=== PATIENT | female | born 1940 | race Caucasian/White ===

== ENCOUNTER 2020-04-04 21:13 | Emergency (ER) | payer MEDICARE, OTHER ==
[~2020-04-04] VITALS: Ht 160 cm; Wt 56.7 kg
[~2020-04-04 21:13] MED LIST: AMLODIPINE BESYL5 MG PO; DOXAZOSIN MESYLA1 MG PO; KEFLEX500 MG PO; LOSARTAN POTAS100 MG PO; SPIRONOLACTONE25 MG PO; TENORMIN50 MG PO; ZOFRAN ODT4 MG SL
--- NOTE | 2020-04-05 11:56 | EKG ---
[facility] [address] [place], [place] [address] Signed Normal sinus rhythm Normal ECG No previous ECGs available Confirmed by WALTER CHAPPELL DO ([id number]) on 04/05/2020 11:56:26 AM Electronically Signed By: WALTER CHAPPELL DO 04/05/20 1156 PATIENT NAME: NASIM HYMAN IRENE Electrocardiogram DATE OF : 40 PHYSICIAN: WALTER CHAPPELL DO REPORT #: [id number] REPORT IS CONFIDENTIAL AND NOT TO BE RELEASED WITHOUT AUTHORIZATION
== END 2020-04-05 01:45 | disposition home or self-care (01) ==
LOC: ED 21:13
DX: I10 Essential (primary) hypertension (principal); R07.9 Chest pain, unspecified; Z88.2 Allergy status to sulfonamides; Z79.899 Other long term (current) drug therapy
CPT/HCPCS: 71045; 80053; 83735; 84484; 85025; 93005; 93010; 96374; 99285-25; J2405

== ENCOUNTER 2021-09-01 07:04 | Day surgery (SDC) | payer MEDICARE, OTHER ==
[~2021-09-01] VITALS: Ht 157.5 cm; Wt 62.0 kg
[~2021-09-01 07:04] MED LIST changes: +ADULT ASPIRIN R81 MG PO; +CEPHALEXIN500 M1 PO; +COZAAR100 MG PO; +IBU-200200 MG PO; +OMEPRAZOLE20 M2 PO; +PRILOSEC OTC20 MG PO; +VITAMIN C500 M5 PO; +ZANTAC-360 (FAM20 MG PO; +[UNRECOGNIZED DRUG - REMARK]
--- NOTE | 2021-09-01 08:57 | NUR ---
09/01/21 0857 Sharla Aldridge 0852- PT ARRIVES TO PACU AWAKE AND ANSWERING QUESTIONS. PT REPORTS NO PAIN OR NAUSEA. RESP EVEN AND UNLABORED. OXYGEN SAT HIGH 90'S TO 100% ON 3L VIA CO2 NC. 0857- OXYGEN TITRATED OFF.
--- NOTE | 2021-09-01 09:48 | OR ---
[facility] [address] [place], [place] [address] Signed DATE OF OPERATION: 09/01/2021 SURGEON: Yan Isaacs MD PREOPERATIVE DIAGNOSIS: Screening. POSTOPERATIVE DIAGNOSES: 1. Moderate sigmoid diverticulosis. 2. Moderately narrowed and tortuous sigmoid colon. 3. Moderate internal hemorrhoids. PROCEDURE: Colonoscopy without biopsy. ESTIMATED BLOOD LOSS: None. INDICATIONS: Nasim is an 81-year-old female, asked to see me for a followup colonoscopy. She had an unremarkable colonoscopy in 2008 and was told to follow up in 10 years. She has no lower GI complaints currently. She maintains good functional status. No family history of colon cancer or polyps. No lower GI complaints. In the office, I gave Nasim a booklet on colonoscopy. She understands the nature of the test. There is risk including, but not limited to gas bloating, crampy abdominal pain, bleeding, perforation requiring surgery and missed diagnosis. She is also aware of the need for IV conscious sedation. She had expressed understanding and wished to proceed. PROCEDURE NOTE: Nasim was taken into our endoscopy suite and placed in the left lateral decubitus position. She was given IV sedation with 100 mcg of fentanyl and 4 mg of Versed to cover the case. A digital rectal exam was performed and this was unremarkable. She had good sphincter tone. The adult colonoscope was introduced and advanced under direct visualization of the camera. Her sigmoid colon was somewhat narrowed and tortuous. It took a few minutes with extra sedation and abdominal compression in order to advance the scope through the sigmoid colon. Once into the left colon, the lumen opened up nicely and the scope traveled around readily to the cecum itself. Her prep was quite excellent. We could easily see the appendiceal orifice and the ileocecal valve. The scope was then slowly withdrawn. There were no polyps throughout the entire colon or rectum. She does have diverticula in the sigmoid colon. They were moderate in size, Electronically Signed By: YAN ISAACS MD 09/01/21 0948 PATIENT NAME: NASIM HYMAN OPERATIVE REPORT DATE OF : 40 REPORT #: [id number] PHYSICIAN: YAN ISAACS MD PCP: AFTAB MICHEL MD REPORT IS CONFIDENTIAL AND NOT TO BE RELEASED WITHOUT AUTHORIZATION [facility] [address] [place] [id number] Signed moderate in number, and scattered about. The rectum itself was unremarkable. Upon retroflexion of the scope, she does have moderate internal hemorrhoid columns. After this, the gas was suctioned out and the colonoscope removed. Nasim tolerated the procedure quite well. RECOMMENDATIONS: Nasim can follow up as needed for colonoscopies in the future. Yan Isaacs MD ALB/MODL /[id number] cc: MD Yan Fowler MD Copies: AFTAB MICHEL MD, ANDREW L MD ~ Electronically Signed By: YAN ISAACS MD 09/01/21 0948 PATIENT NAME: BOOGIE,KIMSwathi BONILLA OPERATIVE REPORT DATE OF : 40 REPORT #: [id number] PHYSICIAN: YAN ISAACS MD PCP: AFTAB MICHEL MD REPORT IS CONFIDENTIAL AND NOT TO BE RELEASED WITHOUT AUTHORIZATION
== END 2021-09-01 09:51 | disposition home or self-care (01) ==
LOC: DS 07:04 → OPS 07:04 → DS 08:15 → OPS 08:15
PROVIDERS: ATTEND Colon & Rectal Surgery
PROC: 0DJD8ZZ Inspection of Lower Intestinal Tract, Via Natural or Artificial Opening Endoscopic (ICD-10-PCS; principal; 2021-09-01 08:15)
DX: Z12.11 Encounter for screening for malignant neoplasm of colon (principal); K57.30 Diverticulosis of large intestine without perforation or abscess without bleeding; K63.89 Other specified diseases of intestine; K64.8 Other hemorrhoids; I10 Essential (primary) hypertension; Z88.2 Allergy status to sulfonamides; Z88.8 Allergy status to other drugs, medicaments and biological substances
CPT/HCPCS: 99153; G0500; J2250; J2405; J3010

== ENCOUNTER 2024-08-19 11:51 | Emergency (ER) | payer MEDICARE, OTHER ==
[~2024-08-19] VITALS: Ht 157.5 cm; Wt 57.6 kg
[2024-08-19] MEDS ORDERED: ATENOLOL50 MG PO (12:05)
[2024-08-19] MEDS ORDERED: RIZATRIPTAN5 MG PO (12:06)
[2024-08-19 12:40] LABS: BASOPHILS 0.4 % (0-2); EOSINOPHILS 1.6 % (0-6); HEMATOCRIT 36.1 % (35.0-50.0); HEMOGLOBIN 12.7 g/dL (12.0-18.0); MCH 33.5 (27-36); MCHC 35.1 g/dl (30-36); MCV 95.4 fl (81-99); MONOCYTES 5.5 % (0-12); NEUTROPHILS 73.5 % (39-80); PLATELET COUNT 295 K/uL (140-440); RBC 3.78 M/ul (4.3-5.7); RDW 13.1 (10.5-15.0)
[2024-08-19] MEDS ORDERED: ondansetron HCL 4 MG/2 ML VIAL IV ONE (12:45)
[2024-08-19 12:56] LABS: ALBUMIN 4.1 g/dL (3.4-5.0); ALBUMIN/GLOBULIN RATIO 1.21 (1.1-2.4); BILIRUBIN, TOTAL 0.6 ng/dL (0.2-1.0); BUN/CREATININE RATIO 14.52 (6.0-28.6); CALCIUM 9.3 mg/dL (8.5-10.1); CREATININE, SERUM 1.17 mg/dL (0.55-1.02); MAGNESIUM 1.3 mg/dL (1.8-2.4); PROTEIN, TOTAL 7.5 g/dL (6.4-8.2)
[2024-08-19] MEDS ORDERED: propofoL 200 MG/20 ML VIAL IV ONE ×2 (13:00→13:30)
[2024-08-19] MEDS ORDERED: MAGNESIUM SULFATE 2 GM/50 ML BAG IV ONE (13:45)
[2024-08-19 15:23] VITALS: BP 142/63
--- NOTE | 2024-08-20 21:14 | EKG ---
[facility] [address] [facility] [place] [address] Signed Normal sinus rhythm Minimal voltage criteria for LVH, may be normal variant ( [place] product ) Borderline ECG When compared with ECG of 04-APR-2020 21:20, No significant change was found Confirmed by Robel Vance DO ([id number]) on 08/20/2024 9:14:45 PM Electronically Signed By: ROBEL VANCE DO 08/20/[id number] PATIENT NAME: BOOGIEKIMSwathi BONILLA Electrocardiogram DATE OF : 40 PHYSICIAN: ROBEL VANCE DO REPORT #: [id number] REPORT IS CONFIDENTIAL AND NOT TO BE RELEASED WITHOUT AUTHORIZATION
== END 2024-08-19 15:23 | disposition home or self-care (01) ==
LOC: ED 11:51
PROVIDERS: Emergency Medicine
DX: R55 Syncope and collapse (principal); E83.42 Hypomagnesemia; S43.084A Other dislocation of right shoulder joint, initial encounter; I10 Essential (primary) hypertension; Z88.1 Allergy status to other antibiotic agents; Z88.2 Allergy status to sulfonamides; W19.XXXA Unspecified fall, initial encounter
CPT/HCPCS: 23650; 36415; 73030; 80053; 83735; 84484; 85025; 93005; 93010; 94799; 99284-25; J2405; J2704; J3475

== ENCOUNTER 2024-08-20 21:11 | Emergency (ER) | payer MEDICARE, OTHER ==
[~2024-08-20] VITALS: Ht 157.5 cm; Wt 57.6 kg
[~2024-08-20 21:11] MED LIST changes: +ATENOLOL50 MG PO; +RIZATRIPTAN5 MG PO
--- OUTSIDE RECORDS SUMMARY | 2024-08-20 21:17 | XMS ---
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 [facility] has no Care Guidelines for this patient. Millie VISIT COUNT (12 MO.) 2 [facility] [place] H. TOTAL 2 NOTE: Visits indicate total known visits. ED/C VISIT TRACKING (12 MO.) 08/20/2024 21:11 [facility] TYPE: Emergency COMPLAINT: - ARM PAIN 08/19/2024 11:[address] [facility] TYPE: Emergency COMPLAINT: - RT SHOULDER INJURY DIAGNOSES: - Allergy status to other antibiotic agents - Allergy status to sulfonamides - Essential (primary) hypertension - Hypomagnesemia - Other dislocation of right shoulder joint, initial encounter - Syncope and collapse - Unspecified fall, initial encounter INPATIENT VISIT TRACKING (12 MO.) No inpatient visits to display in this time frame [email or web address]
[2024-08-21 01:03] VITALS: BP 175/69
== END 2024-08-21 01:04 | disposition home or self-care (01) ==
LOC: ED 21:11
DX: M24.411 Recurrent dislocation, right shoulder (principal); I10 Essential (primary) hypertension; Z88.1 Allergy status to other antibiotic agents; Z88.2 Allergy status to sulfonamides; Z88.8 Allergy status to other drugs, medicaments and biological substances; Z79.899 Other long term (current) drug therapy
CPT/HCPCS: 23650; 73030; 99283-25

== ENCOUNTER 2024-12-04 09:53 | Emergency (ER) | payer MEDICARE, OTHER ==
[~2024-12-04] VITALS: Ht 152.4 cm; Wt 55.7 kg
[2024-12-04] MEDS ORDERED: OMEPRAZOLE20 MG PO (10:09)
[2024-12-04] MEDS ORDERED: NEURONTIN300 MG PO (10:09)
[2024-12-04] MEDS ORDERED: SODIUM CHLORIDE 0.9% 1,000 ML IV ONE (10:15)
[2024-12-04 10:20] LABS: BASOPHILS 0.4 % (0-2); EOSINOPHILS 5.3 % (0-6); HEMATOCRIT 36.8 % (35.0-50.0); HEMOGLOBIN 12.8 g/dL (12.0-18.0); MCH 32.6 (27-36); MCHC 34.8 g/dl (30-36); MCV 93.9 fl (81-99); MONOCYTES 5.3 % (0-12); PLATELET COUNT 320 K/uL (140-440); RBC 3.92 M/ul (4.3-5.7); RDW 13.4 (10.5-15.0)
[2024-12-04 10:39] LABS: ALBUMIN 4.2 g/dL (3.4-5.0); ALBUMIN/GLOBULIN RATIO 1.2 (1.1-2.4); ANION GAP 14.4 (7-21); BILIRUBIN, TOTAL 0.3 mg/dL (0.2-1.0); BUN/CREATININE RATIO 14.17 (6.0-28.6); CALCIUM 9.9 mg/dL (8.5-10.1); CREATININE, SERUM 1.27 mg/dL (0.55-1.02); POTASSIUM 4.4 mmol/L (3.5-5.1); PROTEIN, TOTAL 7.7 g/dL (6.4-8.2)
[2024-12-04 11:04] LABS: BILIRUBIN, URINE NEGATIVE (negative); BLOOD/HGB, URINE NEGATIVE (Negative); KETONE, URINE NEGATIVE (Negative); LEUK ESTERASE, URINE TRACE (negative); NITRITE, URINE NEGATIVE (negative)
[2024-12-04 11:11] LABS: BACTERIA, URINE RARE /hpf (negative); CASTS, URINE NONE SEEN \\lpf; COLLECTION TYPE, URINE CLEAN CATCH; CRYSTALS, URINE NONE SEEN (0-1+); EPITHELIAL CELLS, URINE TRANSITIONAL 2+ /lpf (0-1+); RED BLOOD CELLS, URINE 0-1 /hpf (0-5); REFLEX CULTURE, URINE No (No)
[2024-12-04 13:15] VITALS: BP 175/97
== END 2024-12-04 13:15 | disposition home or self-care (01) ==
LOC: ED 09:53
PROVIDERS: Emergency Medicine
DX: R51.9 Headache, unspecified (principal); I10 Essential (primary) hypertension; Z79.899 Other long term (current) drug therapy; Z88.1 Allergy status to other antibiotic agents; Z88.2 Allergy status to sulfonamides; Z91.048 Other nonmedicinal substance allergy status; Z88.8 Allergy status to other drugs, medicaments and biological substances
CPT/HCPCS: 36415; 70450; 70496; 70498; 70551; 71045; 80053; 81001; 84484; 85025; 99285-25; J7030; Q9967